=== PATIENT | male | born 1960 | race Caucasian/White ===

== ENCOUNTER 2020-12-12 10:14 | Emergency (ER) | payer OTHER ==
[2020-12-12 10:38] VITALS: TEMP 98.8; BMI 29.2
[2020-12-12] MEDS ORDERED: SODIUM CHLORIDE 0.9% 500 ML INFUS.BAG IV ONE (11:43)
[2020-12-12] MEDS ORDERED: ACETAMINOPHEN 1000 MG/100 ML VIAL (NON FORMULARY) IVPB ONE (11:43)
[2020-12-12] MEDS ORDERED: LISINOPRIL 20 MG TABLET PO ONE (11:48)
[2020-12-12] MEDS ORDERED: LISINOPRIL 20 MG TABLET ONE (12:00)
[2020-12-12] MEDS ORDERED: ACETAMINOPHEN INJECTION 100 ML IVPB ONE (12:00)
[2020-12-12 12:29] LABS: EPI CELLS 10 /uL (0-25.1); HYALINE CASTS 0 /uL (0-3.1); PH,URINE 5.5 (5.0-8.0); URINE APPEARANCE CLEAR; URINE BACTERIA 76 /uL (0-1359); URINE BILIRUBIN NEGATIVE (NEGATIVE); URINE COLOR YELLOW; URINE GLUCOSE (UA) 3+ (NEGATIVE); URINE KETONE NEGATIVE (NEGATIVE); URINE LEUK ESTERASE TRACE (NEGATIVE); URINE NITRITE NEGATIVE (NEGATIVE); URINE PROTEIN 2+ (NEGATIVE); URINE RBC 10 /uL (0-23.9); URINE UROBILINOGEN 0.2 mg/dL (0.2-1.0); URINE WBC 104 /uL (0-25.8)
[2020-12-12 13:08] LABS: BASO % 1.2 % (0-2.0); EOS % 2.4 % (0-4.5); HEMOGLOBIN 14.8 GM/dL (11.7-16.9); LYMPH % 27.1 % (8-40); MCH 30.2 pg (25.7-33.7); MCHC 34.4 g/dl (32.0-35.9); MEAN CELL VOLUME 87.7 fl (80-96); MEAN PLT VOLUME 8.4 fl (7.5-11.1); MONO % 7.1 % (3.8-10.2); NEUT % 62.2 % (42.8-82.8); PLATELET COUNT 194 10^3/uL (134-434); RDW 13.7 % (11.9-15.9); WHITE BLOOD COUNT 5.3 K/mm3 (4.0-10.0)
[2020-12-12 13:26] LABS: CHLORIDE 104 mmol/L (98-107); SODIUM 136 mmol/L (136-145)
[2020-12-12 13:30] LABS: ALBUMIN 3.2 g/dl (3.4-5.0); ANION GAP 7 MMOL/L (8-16); CALCIUM 8.5 mg/dL (8.5-10.1); CO2 26 mmol/L (21-32); GLUCOSE,RANDOM 312 mg/dL (74-106)
[2020-12-12 13:31] LABS: BLOOD UREA NITROGEN 18.2 mg/dL (7-18); LIPASE 95 U/L (73-393)
[2020-12-12 13:33] LABS: SGOT/AST 23 U/L (15-37); SGPT/ALT 37 U/L (13-61)
[2020-12-12 13:34] LABS: BILIRUBIN,TOTAL 0.4 mg/dL (0.2-1)
[2020-12-12 13:35] LABS: ALK PHOS 134 U/L (45-117); TOT PROT 6.9 g/dl (6.4-8.2)
[2020-12-12 13:54] LABS: CREATININE 0.7 mg/dL (0.55-1.3)
[2020-12-12] MEDS ORDERED: SULFAMETHOXAZOLE/TRIMETHOPRIM 800MG/160MG D.S. TABLET PO ONE (17:25)
[2020-12-12] MEDS ORDERED: SULFAMETHOXAZOLE/TRIMETHOPRIM 800MG/160MG D.S. TABLET ONE (17:46)
[2020-12-12 17:57] VITALS: BP 160/64; PULSE 76
== END 2020-12-12 17:57 | disposition home or self-care (01) ==
LOC: JER 10:14
PROC: 3E033NZ Introduction of Analgesics, Hypnotics, Sedatives into Peripheral Vein, Percutaneous Approach (ICD-10-PCS; principal; 2020-12-12)
DX: K40.90 Unilateral inguinal hernia, without obstruction or gangrene, not specified as recurrent (principal); R10.9 Unspecified abdominal pain
CPT/HCPCS: 36415; 74177-TC; 80053; 81003; 82550; 83605; 83690; 84484; 85025; 87086; 93005; 93010; 96374; 99285-25; J0131

== ENCOUNTER 2022-06-26 02:31 | Inpatient (IN) | payer OTHER ==
[2022-06-26 02:44] VITALS: BMI 29.2
[2022-06-26] MEDS ORDERED: FAMOTIDINE 20 MG/50 ML IVPB 20 MG/50 ML MG IVPB ONE ×2 (03:21→03:52)
[2022-06-26] MEDS ORDERED: ONDANSETRON 4 MG/2 ML VIAL IVPUSH ONE (03:21)
[2022-06-26] MEDS ORDERED: ACETAMINOPHEN 1000 MG/100 ML BAG IVPB ONE (03:21)
[2022-06-26] MEDS ORDERED: SODIUM CHLORIDE 0.9% 500 ML INFUS.BAG IV ONE (03:21)
[2022-06-26] MEDS ORDERED: ACETAMINOPHEN INJECTION 100 ML IVPB ONE (03:50)
[2022-06-26] MEDS ORDERED: ONDANSETRON 4 MG/2 ML VIAL ONE (03:51)
[2022-06-26 04:56] LABS: BASO % 0.5 % (0-2.0); EOS % 0.1 % (0-4.5); HEMATOCRIT 39.6 % (35.4-49); HEMOGLOBIN 14.2 GM/dL (11.7-16.9); LYMPH % 5.7 % (8-40); MCHC 35.8 g/dl (32.0-35.9); MEAN CELL VOLUME 86.6 fl (80-96); MEAN PLT VOLUME 8.4 fl (7.5-11.1); MONO % 7.7 % (3.8-10.2); PLATELET COUNT 228 10^3/uL (134-434); RBC 4.57 M/mm3 (4.00-5.60); RDW 13.6 % (11.9-15.9); WHITE BLOOD COUNT 10.8 K/mm3 (4.0-10.0)
[2022-06-26 05:17] LABS: CALCIUM 8.9 mg/dL (8.5-10.1)
[2022-06-26 05:18] LABS: ALBUMIN 3.9 g/dl (3.4-5.0); BLOOD UREA NITROGEN 22.5 mg/dL (7-18); MAGNESIUM 1.8 mg/dL (1.8-2.4)
[2022-06-26 05:22] LABS: BILIRUBIN,TOTAL 1.2 mg/dL (0.2-1); TOT PROT 7.8 g/dl (6.4-8.2)
[2022-06-26 05:24] LABS: LACTIC ACID 2.1 mmol/L (0.4-2.0)
[2022-06-26 05:44] LABS: INR 1.16 (0.83-1.09); PROTHROMBIN TIME (PATIENT) 13.4 SEC (9.7-13.0)
[2022-06-26 05:47] LABS: ACTIVATED PTT 34.6 SECONDS (25.2-36.5)
[2022-06-26] MEDS ORDERED: PIPERACILLIN/TAZOB 3.375 GM 3.375 GM in DEXTROSE 5%-WATER - 50 ML IVPB ONE (07:08)
[2022-06-26] MEDS ORDERED: PIPERACILLIN/TAZOB 3.375 GM 3.375 GM/50 ML BAG IVPB ONE (07:52)
[2022-06-26] MEDS: LACTATED RINGERS SOLUTION 1,000 ML/1,000 ML INFUS.BAG IV SCH (07:58)
[2022-06-26] MEDS ORDERED: CEFTRIAXONE 1,000 MG in DEXTROSE 5%-WATER - 50 ML IVPB SCH (10:00)
[2022-06-26] MEDS ORDERED: LOSARTAN POTASSIUM 50 MG TABLET ONE (11:46)
[2022-06-26] MEDS ORDERED: ATENOLOL 50 MG TABLET (FP) ONE (11:47)
[2022-06-26] MEDS ORDERED: amLODIPine BESYLATE 5 MG TABLET (FP) ONE (11:47)
[2022-06-26] MEDS: amLODIPine BESYLATE 5 MG TABLET (FP) PO SCH (11:55)
[2022-06-26] MEDS: LOSARTAN POTASSIUM 50 MG TABLET PO SCH (11:55)
[2022-06-26] MEDS: ATENOLOL 50 MG TABLET (FP) PO SCH (11:55)
[2022-06-26] MEDS: CHLORTHALIDONE 25 MG TABLET PO SCH (11:55)
[2022-06-26] MEDS: INSULIN SLIDING SCALE (NOVOLOG) 1 VIAL SQ SCH ×3 (12:00→23:43)
[2022-06-26] MEDS ORDERED: CEFTRIAXONE 1 GM in DEXTROSE 5%-WATER - 50 ML IVPB SCH (14:00)
[2022-06-26] MEDS ORDERED: INSULIN (LEVEMIR) 100 UNITS/ML UNITS SQ SCH (22:00)
[2022-06-27] MEDS ORDERED: INSULIN (NOVOLOG) ASPART 100 UNITS/ML 10ML VIAL ONE ×2 (05:54→21:08)
[2022-06-27] MEDS: INSULIN SLIDING SCALE (NOVOLOG) 1 VIAL SQ SCH ×4 (06:08→21:21)
[2022-06-27 08:04] LABS: EPI CELLS 36 /uL (0-25.1); HYALINE CASTS 6 /uL (0-3.1); PH,URINE 5.5 (5.0-8.0); URINE APPEARANCE CLEAR; URINE BILIRUBIN 1+ (NEGATIVE); URINE COLOR DK YELLOW; URINE GLUCOSE (UA) 3+ (NEGATIVE); URINE KETONE TRACE (NEGATIVE); URINE LEUK ESTERASE TRACE (NEGATIVE); URINE NITRITE POSITIVE (NEGATIVE); URINE PROTEIN 2+ (NEGATIVE); URINE WBC 68 /uL (0-25.8)
[2022-06-27 08:15] LABS: BASO % 0.2 % (0-2.0); EOS % 0.3 % (0-4.5); HEMOGLOBIN 12.1 GM/dL (11.7-16.9); LYMPH % 8.8 % (8-40); MCH 30.9 pg (25.7-33.7); MCHC 35.5 g/dl (32.0-35.9); MEAN CELL VOLUME 87.1 fl (80-96); MEAN PLT VOLUME 8.5 fl (7.5-11.1); MONO % 7.1 % (3.8-10.2); NEUT % 83.6 % (42.8-82.8); PLATELET COUNT 206 10^3/uL (134-434); RDW 13.6 % (11.9-15.9); WHITE BLOOD COUNT 12.7 K/mm3 (4.0-10.0)
[2022-06-27 08:33] LABS: BLOOD UREA NITROGEN 27.4 mg/dL (7-18); MAGNESIUM 1.9 mg/dL (1.8-2.4)
[2022-06-27 08:36] LABS: CHOLESTEROL 151 mg/dL (50-200); CREATININE 0.9 mg/dL (0.55-1.3)
[2022-06-27 08:37] LABS: LDL CHOLESTEROL (ONLY SJRH) 74 mg/dL (5-100); TOT PROT 6.1 g/dl (6.4-8.2)
[2022-06-27 08:39] LABS: HDL CHOLESTEROL 63 mg/dL (40-60)
[2022-06-27 08:39] LABS: URINE RBC 31 /uL (0-23.9)
[2022-06-27 08:51] LABS: ALBUMIN 2.8 g/dl (3.4-5.0)
[2022-06-27] MEDS ORDERED: KETOROLAC TROMETHAMINE 30 MG/1 ML VIAL IM PRN ×2 (09:26→23:00)
[2022-06-27] MEDS ORDERED: morphine SULFATE 4 MG/ML VIAL IM PRN (09:27)
[2022-06-27] MEDS ORDERED: CEFTRIAXONE 1 GM in DEXTROSE 5%-WATER - 50 ML IVPB SCH (10:00)
[2022-06-27] MEDS: amLODIPine BESYLATE 5 MG TABLET (FP) PO SCH (12:05)
[2022-06-27] MEDS: ATENOLOL 50 MG TABLET (FP) PO SCH (12:05)
[2022-06-27] MEDS: LOSARTAN POTASSIUM 50 MG TABLET PO SCH (12:05)
[2022-06-27] MEDS: LACTATED RINGERS SOLUTION 1,000 ML/1,000 ML INFUS.BAG IV SCH ×2 (12:06→17:50)
[2022-06-27] MEDS: CHLORTHALIDONE 25 MG TABLET PO SCH (12:06)
[2022-06-27] MEDS: KCL 10 MEQ IVPB 10 MEQ/100 ML INFUS.BAG IVPB SCH ×2 (12:06→13:44)
[2022-06-27] MEDS ORDERED: BUPIVACAINE HCL/PF 0.25% (2.5MG/ML) 10 ML VIAL ONE (13:45)
[2022-06-27] MEDS ORDERED: ACETAMINOPHEN 325 MG TABLET (FP) PO PRN (14:12)
[2022-06-27] MEDS ORDERED: ONDANSETRON 4 MG/2 ML VIAL IVPUSH PRN ×2 (14:12→17:36)
[2022-06-27] MEDS ORDERED: oxyCODONE HCL 5 MG TABLET PO PRN (14:12)
[2022-06-27] MEDS ORDERED: LACTATED RINGERS SOLUTION 1,000 ML IV SCH (14:15)
[2022-06-27] MEDS ORDERED: PROPOFOL 40 ML ONE (14:23)
[2022-06-27] MEDS ORDERED: ROCURONIUM BROMIDE 50 MG/5 ML SYRINGE ONE (14:25)
[2022-06-27] MEDS ORDERED: SUGAMMADEX SODIUM 200 MG/2 ML VIAL ONE (15:32)
[2022-06-27] MEDS ORDERED: BUPIVACAINE HCL/PF 0.25% (2.5MG/ML) 10 ML VIAL IJ ONE (15:33)
[2022-06-27] MEDS ORDERED: DEXAMETHASONE SOD PHOSPHATE 4 MG/1 ML VIAL ONE (15:39)
[2022-06-27] MEDS ORDERED: ONDANSETRON 4 MG/2 ML VIAL ONE (15:39)
[2022-06-27] MEDS ORDERED: KETOROLAC TROMETHAMINE 30 MG/1 ML VIAL ONE (15:39)
[2022-06-27] MEDS ORDERED: ACETAMINOPHEN 1000 MG/100 ML BAG IVPB ONE (16:07)
[2022-06-27] MEDS ORDERED: ACETAMINOPHEN INJECTION 100 ML IVPB ONE (16:12)
[2022-06-27] MEDS: LACTATED RINGERS SOLUTION 1,000 ML IV SCH (17:15)
[2022-06-27] MEDS: INSULIN (LEVEMIR) 100 UNITS/ML UNITS SQ SCH (21:20)
[2022-06-27] MEDS: oxyCODONE HCL 5 MG TABLET PO PRN (21:22)
[2022-06-27] MEDS ORDERED: ACETAMINOPHEN 500 MG TABLET (FP) PO PRN (23:00)
[2022-06-28] MEDS ORDERED: INSULIN (NOVOLOG) ASPART 100 UNITS/ML 10ML VIAL ONE ×3 (05:25→16:18)
[2022-06-28] MEDS: INSULIN SLIDING SCALE (NOVOLOG) 1 VIAL SQ SCH ×4 (07:21→23:05)
[2022-06-28 07:45] LABS: HEMOGLOBIN 11.4 GM/dL (11.7-16.9); MCH 30.8 pg (25.7-33.7); MCHC 35.6 g/dl (32.0-35.9); MEAN CELL VOLUME 86.5 fl (80-96); MEAN PLT VOLUME 8.5 fl (7.5-11.1); PLATELET COUNT 211 10^3/uL (134-434); RDW 13.5 % (11.9-15.9); WHITE BLOOD COUNT 11.5 K/mm3 (4.0-10.0)
[2022-06-28 07:47] LABS: BLOOD UREA NITROGEN 25.4 mg/dL (7-18); CALCIUM 7.9 mg/dL (8.5-10.1)
[2022-06-28 07:48] LABS: ALBUMIN 2.6 g/dl (3.4-5.0)
[2022-06-28 07:52] LABS: BILIRUBIN,TOTAL 1.2 mg/dL (0.2-1); TOT PROT 6.1 g/dl (6.4-8.2)
[2022-06-28 09:12] LABS: ANISOCYTOSIS 1+; MACROCYTOSIS 0
[2022-06-28] MEDS: ATENOLOL 50 MG TABLET (FP) PO SCH (10:01)
[2022-06-28] MEDS: LOSARTAN POTASSIUM 50 MG TABLET PO SCH (10:02)
[2022-06-28] MEDS: amLODIPine BESYLATE 5 MG TABLET (FP) PO SCH (10:02)
[2022-06-28] MEDS: CHLORTHALIDONE 25 MG TABLET PO SCH (10:02)
[2022-06-28] MEDS: CEFTRIAXONE 1 GM in DEXTROSE 5%-WATER - 50 ML IVPB SCH (11:17)
[2022-06-28] MEDS: LACTATED RINGERS SOLUTION 1,000 ML IV SCH (13:03)
[2022-06-28 17:11] LABS: ALBUMIN 2.7 g/dl (3.4-5.0)
[2022-06-28 17:14] LABS: BILIRUBIN,DIRECT 0.4 mg/dL (0.0-0.2)
[2022-06-28 17:16] LABS: BILIRUBIN,TOTAL 0.8 mg/dL (0.2-1); TOT PROT 6.2 g/dl (6.4-8.2)
[2022-06-28] MEDS: oxyCODONE HCL 5 MG TABLET PO PRN ×2 (17:20→22:57)
[2022-06-28] MEDS ORDERED: AMOX TR/POT CLAV 875MG/125MG TABLETS (FP) PO SCH (17:30)
[2022-06-28] MEDS: LACTATED RINGERS SOLUTION 1,000 ML/1,000 ML INFUS.BAG IV SCH (17:43)
[2022-06-28] MEDS: INSULIN (LEVEMIR) 100 UNITS/ML UNITS SQ SCH (22:57)
[2022-06-29 02:37] VITALS: RESP 18
[2022-06-29] MEDS: INSULIN SLIDING SCALE (NOVOLOG) 1 VIAL SQ SCH ×2 (06:37→11:52)
[2022-06-29] MEDS ORDERED: INSULIN (LEVEMIR) 100 UNITS/ML UNITS SQ ONE (06:39)
[2022-06-29] MEDS: oxyCODONE HCL 5 MG TABLET PO PRN (07:14)
[2022-06-29 08:33] LABS: BASO % 0.4 % (0-2.0); EOS % 1.8 % (0-4.5); HEMATOCRIT 37.1 % (35.4-49); LYMPH % 15.3 % (8-40); MCH 30.7 pg (25.7-33.7); MEAN CELL VOLUME 87.7 fl (80-96); MEAN PLT VOLUME 8.6 fl (7.5-11.1); MONO % 5.9 % (3.8-10.2); NEUT % 76.6 % (42.8-82.8); PLATELET COUNT 282 10^3/uL (134-434); RBC 4.23 M/mm3 (4.00-5.60); RDW 13.1 % (11.9-15.9); WHITE BLOOD COUNT 7.9 K/mm3 (4.0-10.0)
[2022-06-29 08:44] LABS: CALCIUM 8.7 mg/dL (8.5-10.1)
[2022-06-29 08:45] LABS: ALBUMIN 2.9 g/dl (3.4-5.0); BLOOD UREA NITROGEN 20.8 mg/dL (7-18)
[2022-06-29 08:48] LABS: CREATININE 0.8 mg/dL (0.55-1.3)
[2022-06-29 08:49] LABS: BILIRUBIN,TOTAL 0.6 mg/dL (0.2-1)
[2022-06-29 08:50] LABS: TOT PROT 6.6 g/dl (6.4-8.2)
[2022-06-29] MEDS: CEFTRIAXONE 1 GM in DEXTROSE 5%-WATER - 50 ML IVPB SCH (09:59)
[2022-06-29] MEDS: amLODIPine BESYLATE 5 MG TABLET (FP) PO SCH (10:00)
[2022-06-29] MEDS: ATENOLOL 50 MG TABLET (FP) PO SCH (10:00)
[2022-06-29] MEDS: LOSARTAN POTASSIUM 50 MG TABLET PO SCH (10:00)
[2022-06-29] MEDS: CHLORTHALIDONE 25 MG TABLET PO SCH (10:14)
[2022-06-29 10:53] VITALS: BP 115/79; PULSE 68; TEMP 98.2
[2022-06-29] MEDS ORDERED: AMOX TR/POT CLAV 875MG/125MG TABLETS (FP) PO SCH (17:30)
[2022-06-30] MEDS ORDERED: AMOX TR/POT CLAV 875MG/125MG TABLETS (FP) PO SCH (08:00)
== END 2022-06-29 16:09 | disposition home or self-care (01) | DRG 263 ==
LOC: JER 02:31 → JERBED 08:20 → J8W 23:57
PROVIDERS: ADMIT Internal Medicine; ATTEND Nurse Practitioner Acute Care
PROC: 0FT44ZZ Resection of Gallbladder, Percutaneous Endoscopic Approach (ICD-10-PCS; principal; 2022-06-27 14:00)
DX: K80.00 Calculus of gallbladder with acute cholecystitis without obstruction (principal); I10 Essential (primary) hypertension; E11.9 Type 2 diabetes mellitus without complications; E78.5 Hyperlipidemia, unspecified; K82.A1 Gangrene of gallbladder in cholecystitis; R74.01 Elevation of levels of liver transaminase levels
CPT/HCPCS: 0241U-QW; 36415; 74177-TC; 76705-TC; 80053; 80061; 80076; 81003; 82962; 83036; 83605; 83690; 83735; 84100; 84443; 84484; 85025; 85610; 85730; 86850; 86900; 86901; 87086; 88304-TC; 93005; 93010; 94760; 99285-25; Q9967